=== PATIENT | female | born 1940 | race Caucasian/White ===

== ENCOUNTER 2020-03-13 10:25 | Day surgery (SDC) | payer MEDICARE, BC ==
[2020-03-13] MEDS ORDERED: Midazolam 1 MG/ML 2 ML SDV IV ONE (10:26)
[2020-03-13] MEDS ORDERED: fentaNYL 100 MCG/2 ML SDV IV ONE (10:26)
[2020-03-13] MEDS ORDERED: Sodium Chloride 0.9% 10 ML Syringe FLUSH PRN (11:00)
[2020-03-13] MEDS ORDERED: Lactated Ringers 1,000 ML IV PRN (11:00)
[2020-03-13 12:41] VITALS: BP 126/58; PULSE 65
[2020-03-13] MEDS ORDERED: acetaZOLAMIDE 500 MG Cap.ER PO ONE (13:00)
--- NOTE | 2020-03-13 18:32 | OR ---
DATE OF OPERATION: 03/13/2020 SURGEON: Desiree Ortgea MD PREOPERATIVE DIAGNOSES: 1. Visually significant cataract, right eye. 2. Primary open angle glaucoma, mild stage, right eye. POSTOPERATIVE DIAGNOSIS: Visually significant cataract, right eye. PROCEDURES PERFORMED: 1. Phacoemulsification with intraocular lens placement, right eye. 2. Insertion of anterior segment aqueous drainage device without extraocular reservoir, internal approach, into the trabecular meshwork using iStent inject. The CPT is 0191T and 0376T. ASSISTANTS: None. ANESTHESIA: Local with sedation. COMPLICATIONS: None. BLOOD LOSS: None. IMPLANTS: 1. An Alfonzo ACU0T0, 22.5 diopter lens implanted. 2. iStent inject. CDE: 4.17. DESCRIPTION OF PROCEDURE: After risks and benefits were reviewed with the patient, consent was obtained in the preoperative area, and the operative eye was marked with a surgical pen. In the preoperative area, a pledget was used to dilate the pupil consisting of a mixture of phenylephrine 10%, cyclopentolate 2%, moxifloxacin 0.5%, and bupivacaine 0.75%. The patient was taken to the operating room, where a time-out was performed, and the patient was placed under monitored anesthesia care. Topical tetracaine was used for anesthesia. The operative eye was prepped and draped for ophthalmic surgery, and the microscope was brought into position and focused. A paracentesis incision was made, followed by injection of preservative-free 1% lidocaine into the anterior chamber, followed by injection of Viscoat into the anterior chamber. A microkeratome blade was used to make a corneal limbal incision temporally. A cystotome was used to make the beginning of the capsulorrhexis, which was carried around 360 degrees in a curvilinear fashion using Utrata forceps. A Henley cannula with BSS was used to hydrodissect and hydrodelineate the nucleus. The nucleus was removed in a divide and conquer manner using phacoemulsification. Irrigation and aspiration were used to remove the remaining cortical material. Provisc was used to inflate the capsular bag, and a pre-loaded Alfonzo ACU0T0, 22.5 diopter lens, serial number [id number] was injected into the capsular bag. A Sinskey hook was used to position and center the lens. Next, attention was turned to the iStent inject part of the surgery. The microscope was rotated to help visualize the angle and further Provisc was injected into anterior chamber to balloon up the anterior chamber until it was filled with Provisc or Viscoat. The patient was asked to look down. A small amount of Provisc was siphoned to the cornea and a gonioprism was used to help visualize the angle. The microscope was zoomed in. The iStent inject using the serial number [id number] was then brought onto the field and into the anterior chamber. The protective cover was retracted and the iStent inject was then injected into trabecular meshwork and Schlemm canal. This was repeated a second time for the second inject. Next, irrigation and aspiration was used to remove any remaining viscoelastic and cortical material from the anterior chamber. BSS on a cannula was used to inflate the anterior chamber and hydrate the wound. The wound was checked and found to be watertight. 1 mg of Moxifloxacin was injected into the anterior chamber. Drapes were removed and the eye was cleaned. A drop of brimonidine 0.15% and a drop of TobraDex was placed. The eye was shielded, and the patient was taken to the recovery room in stable condition. /[id number] BE/RICHIE CC: SKY CURTIS OD CC: ABI MILLER MD MTDD
== END 2020-03-13 13:19 | disposition home or self-care (01) ==
LOC: FB.SDS 10:25
PROVIDERS: ATTEND Ophthalmology
DX: H25.813 Combined forms of age-related cataract, bilateral (principal); H40.1131 Primary open-angle glaucoma, bilateral, mild stage; H02.831 Dermatochalasis of right upper eyelid; H02.834 Dermatochalasis of left upper eyelid; H35.3131 Nonexudative age-related macular degeneration, bilateral, early dry stage; H18.52 Epithelial (juvenile) corneal dystrophy; H04.123 Dry eye syndrome of bilateral lacrimal glands; I10 Essential (primary) hypertension; N39.0 Urinary tract infection, site not specified; E78.00 Pure hypercholesterolemia, unspecified; F41.1 Generalized anxiety disorder; Z79.899 Other long term (current) drug therapy
CPT/HCPCS: 00142; 0191T; 0376T; 66984; A9270; J2250; J3010; C1783; V2632

== ENCOUNTER 2020-04-03 07:57 | Day surgery (SDC) | payer MEDICARE, BC ==
[~2020-04-03 07:57] MED LIST: Lactated Ringers 1,000 ML IV PRN
[2020-04-03] MEDS ORDERED: fentaNYL 100 MCG/2 ML SDV IV ONE (07:58)
[2020-04-03] MEDS ORDERED: Midazolam 1 MG/ML 2 ML SDV IV ONE (07:58)
[2020-04-03] MEDS: Sodium Chloride 0.9% 10 ML Syringe FLUSH PRN (08:48)
[2020-04-03] MEDS: acetaZOLAMIDE 500 MG Cap.ER PO ONE (10:35)
[2020-04-03 10:50] VITALS: BP 126/70; PULSE 64
--- NOTE | 2020-04-04 10:39 | OR ---
DATE OF OPERATION: 04/03/2020 SURGEON: Desiree Ortega MD PREOPERATIVE DIAGNOSIS: 1. Visually significant cataract, left eye. 2. Primary open angle glaucoma, mild stage, left eye. POSTOPERATIVE DIAGNOSIS: Visually significant cataract, left eye. PROCEDURES PERFORMED: 1. Phacoemulsification with intraocular lens placement, left eye. 2. Insertion of anterior segment aqueous drainage device without extraocular reservoir, internal approach, into the trabecular meshwork using iStent inject. ASSISTANTS: None. ANESTHESIA: Local with sedation. COMPLICATIONS: None. BLOOD LOSS: None. IMPLANTS: 1. An Alfonzo ACU0T0, 23.0 diopter lens implanted, serial number [id number]. 2. An iStent inject. CDE: 4.19. DESCRIPTION OF PROCEDURE: After risks and benefits were reviewed with the patient, consent was obtained in the preoperative area, and the operative eye was marked with a surgical pen. In the preoperative area, a pledget was used to dilate the pupil consisting of a mixture of phenylephrine 10%, cyclopentolate 2%, moxifloxacin 0.5%, and bupivacaine 0.75%. The patient was taken to the operating room, where a time-out was performed, and the patient was placed under monitored anesthesia care. Topical tetracaine was used for anesthesia. The operative eye was prepped and draped for ophthalmic surgery, and the microscope was brought into position and focused. A paracentesis incision was made, followed by injection of preservative-free 1% lidocaine into the anterior chamber, followed by injection of Viscoat into the anterior chamber. A microkeratome blade was used to make a corneal limbal incision temporally. A cystotome was used to make the beginning of the capsulorrhexis, which was carried around 360 degrees in a curvilinear fashion using Utrata forceps. A Henley cannula with BSS was used to hydrodissect and hydrodelineate the nucleus. The nucleus was removed in a divide and conquer manner using phacoemulsification. Irrigation and aspiration were used to remove the remaining cortical material. Provisc was used to inflate the capsular bag, and a pre-loaded Alfonzo ACU0T0, 23.0 diopter lens, serial number [id number] was injected into the capsular bag. A Sinskey hook was used to position and center the lens. Next, attention was turned to the trabecular meshwork in the angle of the eye. The microscope was rotated and angled in order to help visualize the trabecular meshwork. Further Provisc was injected to inflate the anterior chamber completely and Viscoat was used if needed. A gonioprism was placed onto the corneal epithelium to help visualize the angle structures. An iStent inject, serial number [id number] was brought into the anterior chamber, passed over the pupil into the angle of the eye and injected into trabecular meshwork. The injector was then rotated 1 to 2 o'clock hours away to inject the second iStent inject. Both were positioned nicely. The injector was removed from the anterior chamber. The microscope was then refocused and irrigation and aspiration were used to remove the remaining viscoelastic and cortical material from the anterior chamber. BSS on a cannula was used to inflate the anterior chamber and hydrate the wound. The wound was checked and found to be watertight. 1 mg of Moxifloxacin was injected into the anterior chamber. Drapes were removed and the eye was cleaned. A drop of brimonidine 0.15% and a drop of TobraDex was placed. The eye was shielded, and the patient was taken to the recovery room in stable condition. CC: Juliana Garay OD /[id number] BE/RICHIE HISEH
== END 2020-04-03 11:05 | disposition home or self-care (01) ==
LOC: FB.SDS 07:57
PROVIDERS: ATTEND Ophthalmology
DX: H40.1121 Primary open-angle glaucoma, left eye, mild stage (principal); H25.812 Combined forms of age-related cataract, left eye; N39.0 Urinary tract infection, site not specified; H02.831 Dermatochalasis of right upper eyelid; H02.834 Dermatochalasis of left upper eyelid; H35.3131 Nonexudative age-related macular degeneration, bilateral, early dry stage; H18.529 Epithelial (juvenile) corneal dystrophy, unspecified eye; H04.123 Dry eye syndrome of bilateral lacrimal glands
CPT/HCPCS: 00142-QZ; A9270-GY; J2250; J3010; V2632

== ENCOUNTER 2020-04-22 13:23 | Emergency (ER) | payer MEDICARE, BC ==
[2020-04-22] MEDS ORDERED: Meclizine 25 MG Tab PO ONE (13:24)
--- NOTE | 2020-04-22 14:01 | EDM.PDOC ---
ED HPI GENERAL MEDICAL PROBLEM - General Chief Complaint: Neurological Problem Stated Complaint: ??? Time Seen by Provider: 04/22/20 13:45 Source of Information: Reports: Patient, Old Records, RN History Limitations: Reports: No Limitations - History of Present Illness INITIAL COMMENTS - FREE TEXT/NARRATIVE: 79 yo female with a past hx of ruptured aneurysm bent over about 30 min prior to arrival and had abrupt onset of vertigo. Her sx's have waxed and waned since with worsening with changes in head position. She had nausea, but no vomiting. No hx of BPV. Is much better now as long as she doesn't move. Has a mild GONZALEZ earlier and took 1 acetaminophen tablet for that. Onset: Today, Sudden Onset Date: 04/22/20 Duration: Minutes: (~30), Improving Location: Reports: Head Quality: Reports: Ache Severity: Mild Improves with: Reports: Rest (holding head still) Worsens with: Reports: Movement (of head) Context: Reports: Other (See HPI) Associated Symptoms: Reports: Nausea/Vomiting (no vomiting) Treatments APPLICATION SUPPORT ENGINEER: Reports: Other (see below) (none) - Related Data Allergies Allergy/AdvReac Type Severity Reaction Status Date / Time lisinopril AdvReac Cough Verified 04/22/20 13:24 Home Meds: Home Meds [place] 1,000 mg PO DAILY 08/15/13 [History] Calcium Carbonate 600 tab PO BID 08/15/13 [History] Carboxymethylcellulos/Glycerin [Refresh Optive] 1 drop EYEBOTH BID 08/15/13 [History] Cholecalciferol (Vitamin D3) [Vitamin D3] 1,000 unit PO DAILY 08/15/13 [History] [place]-3 Fatty Acids [[place]-3] 1,000 mg PO DAILY 08/15/13 [History] Omeprazole [Prilosec] 40 mg PO DAILY 08/15/13 [History] diphenhydrAMINE [Benadryl] 50 mg PO BEDTIME PRN 08/15/13 [History] Lutein 10 mg PO DAILY 02/08/14 [History] Multivitamin with Minerals [Multiple Vitamin] 1 tab PO BEDTIME 03/29/16 [History] Bioflavonoids, Nance [Bioflavonoid Nance] 1,000 mg PO DAILY 02/23/20 [History] Biotin 5 mg PO DAILY 02/23/20 [History] Cranberry Fruit Extract [Cranberry] 475 mg PO DAILY PRN 02/23/20 [History] Fluticasone Propionate [Flonase] 2 spray NASBOTH DAILY 02/23/20 [History] Glucosam/Chond-MSM 2/C/D3/Wyatt [Ruwfwpiyhz-Gkhsnxxsjrw-OKV] 1 tab PO BEDTIME 02/23/20 [History] L.acidoph,Paracasei, B.lactis [Probiotic] 1 each PO BEDTIME 02/23/20 [History] Latanoprost [Xalatan] 1 drop EYEBOTH BEDTIME 02/23/20 [History] Lecithin 1,200 mg PO DAILY 02/23/20 [History] Montelukast [Singulair] 10 mg PO DAILY 02/23/20 [History] Vitamin A 10,000 unit PO DAILY 02/23/20 [History] amLODIPine [Norvasc] 5 mg PO DAILY 02/23/20 [History] atorvaSTATin [Lipitor] 40 mg PO BEDTIME 02/23/20 [History] bisoproloL fumarate [Bisoprolol Fumarate] 5 mg PO DAILY 02/23/20 [History] Meclizine [Antivert] 25 mg PO Q6H PRN #36 tab.chew 04/22/20 [Rx] Past Medical History HEENT History: Reports: Allergic Rhinitis, Cataract, Glaucoma, Macular Degeneration, Other (See Below) Other HEENT History: Chronic Sinusitis; deviated nasal septum Cardiovascular History: Reports: High Cholesterol, Hypertension Respiratory History: Reports: Other (See Below) Other Respiratory History: cough; hx diaphragmatic hernia Gastrointestinal History: Reports: Other (See Below) Other Gastrointestinal History: esophageal reflux Musculoskeletal History: Reports: Other (See Below) Other Musculoskeletal History: hx of closed metatarsal bone; disorder of bone and cartilage. Hematologic History: Reports: Anemia Oncologic (Cancer) History: Reports: Colon - Past Surgical History HEENT Surgical History: Reports: Cataract Surgery Other HEENT Surgeries/Procedures: RIGHT EYE CATARACT SURGERY DONE Social & Family History - Family History Family Medical History: Noncontributory - Caffeine Use Caffeine Use: Reports: Tea ED ROS GENERAL - Review of Systems Review Of Systems: See Below Constitutional: Reports: No Symptoms HEENT: Reports: No Symptoms, Other (no photophobia) Respiratory: Reports: No Symptoms GI/Abdominal: Reports: Nausea. Denies: Vomiting : Reports: No Symptoms Musculoskeletal: Reports: No Symptoms. Denies: Neck Pain (no stiff neck) Skin: Reports: No Symptoms Neurological: Reports: Dizziness, Headache (minimal, preceded dizziness), Difficulty Walking. Denies: Numbness Psychiatric: Reports: No Symptoms ED EXAM, DIZZINESS - Physical Exam Exam: See Below Exam Limited By: No Limitations General Appearance: Alert, WD/WN, No Apparent Distress Eye Exam: Bilateral Eye: EOMI, Normal Inspection, PERRL Ears: Normal External Exam, Normal Canal, Hearing Grossly Normal, Normal TMs Nose: Normal Inspection, No Blood Throat/Mouth: Normal Inspection, Normal Lips, Normal Oropharynx, Normal Voice, No Airway Compromise Head Exam: Atraumatic, Normocephalic Neck: Normal Inspection Respiratory/Chest: No Respiratory Distress, Lungs Clear, Normal Breath Sounds, No Accessory Muscle Use Cardiovascular: Regular Rate, Rhythm Neurological: Alert, Normal Mood/Affect, CN II-XII Intact, No Motor/Sensory Deficits, Oriented x 3 Extremities: Normal Inspection Psychiatric: Normal Affect, Normal Mood Skin Exam: Warm, Dry, Intact, Normal Color, No Rash Course - Vital Signs Last Recorded V/S: Last Vital Signs Temp 36.6 C 04/22/20 13:23 Pulse 86 04/22/20 13:23 Resp 18 04/22/20 13:23 BP 150/63 H 04/22/20 13:23 Pulse Ox 97 04/22/20 13:23 - Orders/Labs/Meds Meds: Medications Discontinued Medications Generic Name Dose Route Start Last Admin Trade Name Libradoq PRN Reason Stop Dose Admin Meclizine HCl 25 mg 04/22/20 13:45 04/22/20 14:04 Antivert PO 04/22/20 13:46 25 mg ONETIME ONE Administration - Re-Assessments/Exams Free Text/Narrative Re-Assessment/Exam: 04/22/20 14:51 Sx's resolved after meclizine. Departure - Departure Time of Disposition: 15:00 Disposition: Home, Self-Care 01 Condition: Good Clinical Impression: BPV (benign positional vertigo) Qualifiers: Laterality: unspecified laterality Qualified Code(s): H81.10 - Benign paroxysmal vertigo, unspecified ear - Discharge Information *PRESCRIPTION DRUG MONITORING PROGRAM REVIEWED*: Not Applicable *COPY OF PRESCRIPTION DRUG MONITORING REPORT IN PATIENT MARIA E: Not Applicable Prescriptions: Meclizine [Antivert] 25 mg PO Q6H PRN #36 tab.chew PRN Reason: Dizziness Instructions: Benign Positional Vertigo Referrals: PCP,None [Ordering Only Provider] - Forms: ED Department Discharge Additional Instructions: Take meclizine 25 mg every 6 hrs as needed for vertigo. If this medicine does not help, then discuss with your provider as he/she can refer you to physical therapy for some special head maneuvers to help you get over the vertigo. A Rx was sent to your pharmacy for another 36 doses of this medicine. Sepsis Event Note (ED) - Focused Exam Vital Signs: Vital Signs Temp Pulse Resp BP Pulse Ox 04/22/20 13:23 36.6 C 86 18 150/63 H 97
[2020-04-22] MEDS: Meclizine 25 MG Tab PO ONE (14:04)
[2020-04-22 15:49] VITALS: BP 146/87; PULSE 87
== END 2020-04-22 15:30 | disposition home or self-care (01) ==
LOC: FB.ED 13:23
DX: H81.10 Benign paroxysmal vertigo, unspecified ear (principal); I10 Essential (primary) hypertension; E78.00 Pure hypercholesterolemia, unspecified; K21.9 Gastro-esophageal reflux disease without esophagitis; Z88.8 Allergy status to other drugs, medicaments and biological substances; Z79.899 Other long term (current) drug therapy
CPT/HCPCS: 99283; A9270

== ENCOUNTER 2024-08-20 11:35 | Emergency (ER) | payer MEDICARE ==
[2024-08-20 12:01] VITALS: PULSE 71
[2024-08-20 12:18] LABS: BLOOD UREA NITROGEN,BUN 7 mg/dL (7-18); BUN/CREATININE RATIO 8.8 (9-20); CALCIUM 8.4 mg/dL (8.6-10.2); CARBON DIOXIDE,CO2 30 mmol/L (21-32); CHLORIDE,CL 98 mmol/L (100-110); CREATININE 0.8 mg/dL (0.55-1.02); EST CRCL DRUG DOSING (CG) 48.79 mL/min; ESTIMATED GFR 74 mL/min (>60); GLUCOSE RANDOM 122 mg/dL (80-116); POTASSIUM,K 3.9 mmol/L (3.5-5.3); SODIUM,NA 134 mmol/L (135-145)
[2024-08-20 12:24] LABS: ALANINE AMINOTRANSFERASE,ALT 32 U/L (12-36); ALBUMIN 3.3 g/dL (3.2-4.6); ALKALINE PHOSPHATASE 98 IU/L (56-112); ASPARTATE AMNIOTRANSFERASE,AST 25 IU/L (5-25); BILIRUBIN TOTAL 0.5 mg/dL (0.1-1.3); PROTEIN TOTAL,TP 6.7 g/dL (6.0-8.0)
[2024-08-20 12:41] LABS: BASOPHILS PERCENT AUTO 0.7 % (0.2-1.5); EOSINOPHILS PERCENT AUTO 0.7 % (0.6-8.1); HEMATOCRIT 34.5 % (34.2-48.2); HEMOGLOBIN 12.1 g/dL (11.4-15.5); LYMPHOCYTES ABSOLUTE AUTO 1.4 x10-3/uL (1.0-4.4); MEAN CORPUSCULAR HEMOGLOBIN 33.2 pg (23.9-33.9); MEAN CORPUSCULAR VOLUME 94.8 fL (76.7-100.5); MEAN PLATELET VOLUME 7.5 fL (7.1-12.4); MONOCYTES ABSOLUTE AUTO 0.6 x10-3/uL (0.3-1.0); MONOCYTES PERCENT AUTO 8.3 % (4.4-15.7); NEUTROPHILS ABSOLUTE AUTO 5.1 x10-3/uL (1.5-6.3); NEUTROPHILS PERCENT AUTO 71.3 % (30.8-76.2); PLATELET COUNT,PLT 366 x10(3)uL (151-488); RED BLOOD CELL COUNT 3.64 x10(6)uL (3.60-5.20); RED CELL DISTRIBUTION WIDTH 12.8 % (12.3-16.5); WHITE BLOOD CELL COUNT,WBC 7.1 x10-3/uL (3.0-10.3)
[2024-08-20] MEDS: Ketorolac 30 MG/ML SDV IM ONE (12:50)
[2024-08-20] MEDS: Prochlorperazine 10 MG/2 ML SDV IM ONE (12:51)
[2024-08-20 13:52] VITALS: BP 109/87
== END 2024-08-20 13:18 | disposition home or self-care (01) ==
LOC: FB.ED 11:35
DX: G44.209 Tension-type headache, unspecified, not intractable (principal); H81.13 Benign paroxysmal vertigo, bilateral; I10 Essential (primary) hypertension; E78.00 Pure hypercholesterolemia, unspecified; Z79.899 Other long term (current) drug therapy; Z79.51 Long term (current) use of inhaled steroids; Z88.8 Allergy status to other drugs, medicaments and biological substances
CPT/HCPCS: 36415; 70450; 80053; 84484; 85025; 93005; 96372; 99284; J0780; J1885